=== PATIENT | male | born 1940 | race Caucasian/White ===

== ENCOUNTER → 2016-07-10 | Outpatient (CLI) | payer OTHER | LOC: KOH-I 12:09 | DX: M54.5 Low back pain (principal); M25.552 Pain in left hip; M47.816 Spondylosis without myelopathy or radiculopathy, lumbar region | CPT/HCPCS: 72110; 73502 ==

== ENCOUNTER → 2016-07-31 | Outpatient (CLI) | payer OTHER | LOC: EMI 17:33 | DX: M54.5 Low back pain (principal); M51.36 Other intervertebral disc degeneration, lumbar region; M51.37 Other intervertebral disc degeneration, lumbosacral region; M47.816 Spondylosis without myelopathy or radiculopathy, lumbar region; M99.73 Connective tissue and disc stenosis of intervertebral foramina of lumbar region; M51.26 Other intervertebral disc displacement, lumbar region | CPT/HCPCS: 72148 ==

== ENCOUNTER 2020-12-13 12:39 | Inpatient (IN) | payer OTHER ==
[~2020-12-13] VITALS: Ht 177.8 cm; Wt 72.6 kg
[2020-12-13 13:04] LABS: HEMOGLOBIN 13.5 gm/dl (14.0-17.5); RED BLOOD COUNT 4.2 M/UL (4.20-5.50)
[2020-12-13] MEDS ORDERED: ATHLETIC FOOT C30 GM TP (16:42)
[2020-12-13] MEDS ORDERED: ALLOPURINOL300 MG PO (16:43)
[2020-12-13] MEDS ORDERED: CELECOXIB200 MG PO (16:43)
[2020-12-13 17:14] LABS: HEMOGLOBIN 13.2 gm/dl (14.0-17.5)
[2020-12-13 17:16] LABS: WHITE BLOOD COUNT 15.3 K/UL (4.5-11.0)
[2020-12-14 07:25] LABS: HEMOGLOBIN 12.9 gm/dl (14.0-17.5); RED BLOOD COUNT 3.99 M/UL (4.20-5.50); WHITE BLOOD COUNT 16.5 K/UL (4.5-11.0)
[2020-12-15 05:32] LABS: HEMOGLOBIN 11.7 gm/dl (14.0-17.5); RED BLOOD COUNT 3.59 M/UL (4.20-5.50); WHITE BLOOD COUNT 14.3 K/UL (4.5-11.0)
[2020-12-16 06:00] LABS: HEMOGLOBIN 10.6 gm/dl (14.0-17.5); RED BLOOD COUNT 3.33 M/UL (4.20-5.50); WHITE BLOOD COUNT 11.5 K/UL (4.5-11.0)
[2020-12-16 06:17] LABS: BUN/CREATININE RATIO 27 (0-10)
[2020-12-17 05:53] LABS: HEMOGLOBIN 10.6 gm/dl (14.0-17.5); RED BLOOD COUNT 3.36 M/UL (4.20-5.50)
[2020-12-17 06:13] LABS: BUN/CREATININE RATIO 31 (0-10)
--- NOTE | 2020-12-18 18:19 | NUR ---
CALLED AND GAVE REPORT TO [employer] ON MED SURG AT THIS TIME , PT GOING TO ROOM 5109 NOTED, COMFORT MEASURES.
[2020-12-21] MEDS ORDERED: TRANSDERM-SCOP1 EACH TOP (09:38)
--- NOTE | 2020-12-21 16:54 | NUR ---
RN ASSESSED PATIENT AND AUSCULTATED HEART SOUNDS, NONE NOTED. JEANIE RUBIO RN VERIFIED AND PATIENT PRONOUNCED . FAMILY AT BEDSIDE. DR. PHAM, [employer]ESS OPERATOR, AND FAMILY MADE AWARE. [facility] / [facility] NOTIFIED OF FAMILY'S REQUEST FOR PATIENT'S REMAINS TO BE RELEASED TO THEM. [employer] CAME AND TRANSPORTED PATIENT OUT OF FACILITY.
== END 2020-12-21 15:58 | disposition expired | DRG 246 ==
LOC: ER1 12:39 → CCU 12:56 → M/S 12:56 → CDU 12:56 → CCU 15:45 → M/S 12-18 19:50
PROVIDERS: Emergency Medicine; Internal Medicine Interventional Cardiology; ADMIT Internal Medicine
PROC: 027034Z Dilation of Coronary Artery, One Artery with Drug-eluting Intraluminal Device, Percutaneous Approach (ICD-10-PCS; principal; 2020-12-13)
PROC: 5A12012 Performance of Cardiac Output, Single, Manual (ICD-10-PCS; 2020-12-13)
PROC: 03HY32Z Insertion of Monitoring Device into Upper Artery, Percutaneous Approach (ICD-10-PCS; 2020-12-13)
PROC: 0BH17EZ Insertion of Endotracheal Airway into Trachea, Via Natural or Artificial Opening (ICD-10-PCS; 2020-12-13)
PROC: B24BZZ4 Ultrasonography of Heart with Aorta, Transesophageal (ICD-10-PCS; 2020-12-13)
PROC: 4A023N7 Measurement of Cardiac Sampling and Pressure, Left Heart, Percutaneous Approach (ICD-10-PCS; 2020-12-13)
PROC: 5A1955Z Respiratory Ventilation, Greater than 96 Consecutive Hours (ICD-10-PCS; 2020-12-13)
DX: I21.19 ST elevation (STEMI) myocardial infarction involving other coronary artery of inferior wall (principal); R40.20 Unspecified coma; J96.01 Acute respiratory failure with hypoxia; N17.0 Acute kidney failure with tubular necrosis; J69.0 Pneumonitis due to inhalation of food and vomit; G93.1 Anoxic brain damage, not elsewhere classified; J98.11 Atelectasis; G93.49 Other encephalopathy; N17.9 Acute kidney failure, unspecified; I13.0 Hypertensive heart and chronic kidney disease with heart failure and stage 1 through stage 4 chronic kidney disease, or unspecified chronic kidney disease; I47.2 Ventricular tachycardia; E87.2 Acidosis; Z51.5 Encounter for palliative care; Z66 Do not resuscitate; Z20.822 Contact with and (suspected) exposure to COVID-19; N18.9 Chronic kidney disease, unspecified; R57.0 Cardiogenic shock; D72.829 Elevated white blood cell count, unspecified; I49.01 Ventricular fibrillation; E87.6 Hypokalemia; I46.2 Cardiac arrest due to underlying cardiac condition; I16.0 Hypertensive urgency; E87.5 Hyperkalemia; M10.9 Gout, unspecified; I08.0 Rheumatic disorders of both mitral and aortic valves; I25.10 Atherosclerotic heart disease of native coronary artery without angina pectoris; E78.5 Hyperlipidemia, unspecified; Z95.5 Presence of coronary angioplasty implant and graft; Z83.49 Family history of other endocrine, nutritional and metabolic diseases; Z79.82 Long term (current) use of aspirin
CPT/HCPCS: ECHO; 31500; 36415; 36600; 43752; 51702; 70450; 71045; 80048; 80053; 82550; 82553; 82803; 82962; 83605; 83735; 83874; 83880; 84132; 84484; 85025; 85027; 87040; 87070; 87205; 92950; 93005; 93306; 94002; 94003; 94640; 94760; 99285; C1725; C1769; C1874; C1887; C9113; J0171; J0461; J0583; J1335; J1644; J2020; J2060; J2185; J2250; J2270; J2704; J3475; J7030; J7040; J7070; Q9965; U0002